=== PATIENT | male | born 1970 | race African-American/Black ===

== ENCOUNTER 2019-08-19 11:10 | Emergency (ER) | payer BC ==
[2019-08-19] MEDS ORDERED: AMLODIPINE BESYLATE 10 MG TABLET PO ONE (11:23)
--- NOTE | 2019-08-19 11:25 | ER Document Report ---
ED Medical Screen (RME) - General Chief Complaint: Blood Pressure Problem Stated Complaint: BLOOD PRESSURE ISSUE Time Seen by Provider: 08/19/19 11:20 Primary Care Provider: VIRGINIE DUVALL [Primary Care Provider] - Follow up as needed - [facility] Notes: 08/19/19 11:34 49-year-old male to the emergency department with complaints of elevated blood pressure. He was sent by [employer] He states that he was over there and had a blood pressure of 240/105. He states that they gave him some blood pressure medicine that he is not sure what it was and was told to come over to the emergency department. He denies any chest pain, headache, neurological deficits, speech difficulty, gait disturbance. He states that he has had a history of high blood pressure but he was not on any medicine because he had a controlled by diet. He states he has not seen a primary care physician in some time until today. Denies any other complaints. Blood pressure in triage is 180/103. I performed a brief medical screening exam on this patient and determined he needs further management and evaluation by means at ER provider. I placed initial orders to help expedite in his treatment plan today to include lab work and medications. Patient has no neurological deficits on brief neuro exam -- CN 2-12 intact, no dysarthria, no confusion, no pronator drift, normal finger to nose bilaterally, no leg drift, normal heel to ramirez bilaterally, ambulate without difficulty. Doctor's Discharge - Discharge Referrals: VIRGINIE DUVALL [Primary Care Provider] - Follow up as needed
[2019-08-19 12:56] LABS: ABSOLUTE EOSINOPHILS # (AUTO) 0.2 10^3/uL (0.0-0.6); ABSOLUTE LYMPHOCYTES (AUTO) 1.9 10^3/uL (0.5-4.7); ABSOLUTE MONOCYTES (AUTO) 0.5 10^3/uL (0.1-1.4); ABSOLUTE NEUT (AUTO) 2.1 10^3/uL (1.7-8.2); BASOPHILS % (AUTO) 0.9 % (0-2); EOSINOPHILS % (AUTO) 4.6 % (0-6); HEMATOCRIT 43.3 % (37.9-51.0); HEMOGLOBIN 14.7 g/dL (13.5-17.0); LYMPHOCYTES % (AUTO) 39.8 % (13-45); MEAN CORPUSCULAR HEMOGLOBIN 30.2 pg (27.0-33.4); MEAN CORPUSCULAR HGB CONC 33.9 g/dL (32.0-36.0); MEAN CORPUSCULAR VOLUME 89 fl (80-97); MONOCYTES % (AUTO) 9.7 % (3-13); PLATELET COUNT 249 10^3/uL (150-450); RED BLOOD COUNT 4.85 10^6/uL (4.35-5.55); RED CELL DISTRIBUTION WIDTH 13.1 % (11.5-14.0); TOTAL CELLS COUNTED % (AUTO) 100 %; WHITE BLOOD COUNT 4.7 10^3/uL (4.0-10.5)
[2019-08-19 13:12] LABS: ANION GAP 10 (5-19); BLOOD UREA NITROGEN 17 mg/dL (7-20); CARBON DIOXIDE 29 mmol/L (22-30); CHLORIDE 103 mmol/L (98-107); GLUCOSE 102 mg/dL (75-110)
--- NOTE | 2019-08-19 13:30 | ER Document Report ---
ED General - General Chief Complaint: Blood Pressure Problem Stated Complaint: BLOOD PRESSURE ISSUE Time Seen by Provider: 08/19/19 11:20 Primary Care Provider: VIRGINIE DUVALL [NO LOCAL MD] - Follow up as needed - Related Data Allergies/Adverse Reactions: No Known Allergies Allergy (Verified 08/19/19 13:59) Past Medical History - Social History Smoking Status: Never Smoker Family History: None - Noncontributory Physical Exam - Vital signs Vitals: Temp Pulse Resp BP Pulse Ox 99.4 F 96 16 188/108 H 99 08/19/19 11:23 08/19/19 11:23 08/19/19 11:23 08/19/19 11:23 08/19/19 11:23 - Notes Notes: Patient was sent from urgent care center for evaluation of elevated blood pressure. He was in the dentist office today for routine extraction and noticed blood pressure elevated and sent him to urgent care. His blood pressure was 240/105 and he was given clonidine with no change. There was a prescription for blood pressure medicines and sent to the ED. In route he was given nifedipine by the paramedics and she will antihypertensive upon arrival here. Patient denies any headaches abnormal vision chest pain shortness of breath nausea vomiting abdominal pain abnormal speech weakness or lower extremity edema and no numbness in extremities. He denies any illegal drug abuse Patient reports that he was on blood pressure medicines 5 to 6 years ago lost some weight and stopped the medications and has not had his blood pressure checked since then His past medical history and symptoms of hypertension in the past he has no diabetes coronary artery disease elevated cholesterol. Social history does not smoke occasional alcohol. Review of systems pertinent positives and negatives in HPI otherwise all the systems were reviewed and acutely negative PHYSICIAN EXAM -vital signs are noted triage note and note from triage reviewed GENERAL: Well-appearing, well-nourished and in _no acute distress HEAD: Atraumatic, normocephalic. EYES: Pupils equal round and reactive to light, extraocular movements intact, sclera anicteric, conjunctiva are normal. ENT: nares patent, oropharynx clear without exudates. Moist mucous membranes. NECK: supple without lymphadenopathy LUNGS: Breath sounds clear to auscultation bilaterally and equal. No wheezes rales or rhonchi. HEART: Regular rate and rhythm without murmurs ABDOMEN: Soft, nontender, normoactive bowel sounds. EXTREMITIES: No deformity, no edema. NEUROLOGICAL: No focal neurological deficits. Moves all extremities spontaneously and on command. PSYCH: Normal mood, normal affect. SKIN: Warm, Dry, normal turgor, no rashes or lesions noted. BACK-nontender in the midline Course - Re-evaluation Re-evalutation: 08/19/19 13:55 ED patient is remained stable blood pressure is 200/115\ Medical decision-making patient presents with asymptomatic hypertension he received 3 medications and blood pressure has started to improve. Based on current [facility] policy there is no indication to acutely lower his blood pressure. He is already received medications he has a prescription that he is already filled it looks well can be discharged home. I did emphasize need for him to take his medicine today and on a regular basis and follow-up in 1 week to determine if he needs his medications adjusted. He was warned of the effects of loosening hypertension including heart attack stroke and - Vital Signs Vital signs: Temp Pulse Resp BP Pulse Ox 99.4 F 96 13 184/121 H 100 08/19/19 11:23 08/19/19 11:23 08/19/19 14:01 08/19/19 14:00 08/19/19 14:01 - Laboratory Result Diagrams: 08/19/19 12:36 08/19/19 12:36 Discharge - Discharge Clinical Impression: Hypertension Qualifiers: Hypertension type: essential hypertension Qualified Code(s): I10 - Essential (primary) hypertension Condition: Good Disposition: HOME, SELF-CARE Additional Instructions: make sure you get your prescription filled today and start taking the meds please review the discharge instruction Forms: Elevated Blood Pressure Referrals: ELOINA,NO [NO LOCAL MD] - Follow up as needed
[2019-08-19 14:12] VITALS: BP 184/121
== END 2019-08-19 14:31 | disposition home or self-care (01) ==
LOC: ER 11:10
DX: I10 Essential (primary) hypertension (principal)
CPT/HCPCS: 36415; 80048; 85025; 99283